=== PATIENT | male | born 1990 | race Caucasian/White ===

== ENCOUNTER 2021-08-12 11:01 | Outpatient (CLI) | payer OTHER | END 2021-08-12 11:02 | disposition home or self-care (01) | LOC: MRI 11:01 | PROVIDERS: ATTEND Student in an Organized Health Care Education/Training Program | DX: M25.512 Pain in left shoulder (principal); S43.401A Unspecified sprain of right shoulder joint, initial encounter; M67.411 Ganglion, right shoulder ==